=== PATIENT | female | born 1970 | race African-American/Black ===

== ENCOUNTER 2020-02-01 11:33 | Emergency (ER) | payer MEDICAID ==
[~2020-02-01] VITALS: Ht 160 cm; Wt 92.5 kg
[2020-02-01 11:40] VITALS: BP 159/97
--- NOTE | 2020-02-01 12:00 | NUR ---
ED Nurse Note: Patient from home and walked in due heart palpitation and feeling weak x 1 week. Reports dizziness when waking up in the morning. Patient presented calm, AAO x4, HR 103, other VSS at this time.
--- NOTE | 2020-02-01 12:01 | Emergency Room Report ---
History of Present Illness General Chief Complaint: Palpitations Source: Patient (Roc Estevez MD) Present Illness HPI Patient is a 49-year-old female who presents for intermittent palpitations. Reports having increased associated lightheadedness. Reports having interm ittent episodes of racing heartbeat. Denies any prior cardiac history. Does not seek medical care regularly. Denies any recent bleeding episodes or history of anemia. Had not been having vomiting or diarrhea. Denies any recent fever or shortness of breath. Speaks primarily [place] creole. (Roc Estevez MD) Allergies: Coded Allergies: No Known Allergies (Unverified , 02/01/20) COVID-19 Screening Contact w/high risk pt: No Experienced COVID-19 symptoms?: No COVID-19 Testing performed SURVEY RESEARCH ANALYST: No (Roc Estevez MD) Patient History Past Medical History: see triage record Reviewed Nursing Documentation: PMH: Agreed; PSxH: Agreed (Roc Estevez MD) Nursing Documentation-PMH Past Medical History: No Stated History (Roc Estevez MD) Review of Systems All Other Systems: negative except mentioned in HPI (Roc Estevez MD) Physical Exam Vital Signs Date Time Temp Pulse Resp B/P (MAP) Pulse Ox O2 Delivery O2 Flow Rate FiO2 02/01/20 11:39 98.8 97 19 159/97 (117) 96 Room Air Sp02 EP Interpretation: reviewed, normal General Appearance: normal inspection, well appearing, no apparent distress, alert, GCS 15 Head: atraumatic ENT: normal ENT inspection, hearing grossly normal, normal voice Neck: normal inspection, full range of motion, supple, no bony tend Respiratory: normal inspection, lungs clear, normal breath sounds, no res piratory distress, no retraction, no wheezing Cardiovascular #1: no edema, tachycardia Gastrointestinal: normal inspection, normal bowel sounds, non tender, soft, no guarding, no hernia Genitourinary: no CVA tenderness Musculoskeletal: normal inspection, back normal, normal range of motion Neurologic: alert, responsive, speech normal, normal inspection Psychiatric: normal inspection, judgement/insight normal, mood/affect normal (Roc Estevez MD) Medical Decision Making Diagnostic Impression: Primary Impression: Palpitations Additional Impression: Thyroid nodule ER Course Patient presented for palpitations. Differential diagnosis include was not limited to arrhythmia, hypothyroid, PVCs among others. Because of complexity of patient's case laboratory tests and imaging studies were ordered. Patient's laboratory testing did show some evidence of elevated D-dimer. CT imaging was ordered to evaluate for possible PE. Troponin was noted be negative. Patient does not have any known cardiac risk factor. Patient was observed to have some intermittent PVCs without evidence of cardiac arrhythmia. Patient was endorsed to Dr. Ribeiro. Pending CT findings. (Roc Estevez MD) ER Course Assumed care of the patient from the previous provider at approximately 1400. Please refer to initial note for full history and physical exam. Briefly, 49-year-old female no reported medical history presenting for palpitations and lightheadedness several days duration. At the time of signout we are pending CTA as the patient had a positive D-dimer. EKG showed nonspecific borderline tachycardia. Troponin was negative. TSH, CBC although was within normal limits. No large occluding thrombus identified on CT though they could not exclude small periphery PE due to timing contrast. There is a questionable thyroid nodule as well. Discussed these findings with patient and her son. She has been ambulatory in the emergency department with stable vital signs and no further symptoms. She would like to return home at this time and declined admission. Will refer to nearby clinics and encouraged her to follow- up with PMD through her insurance program. Copies of her labs and CTs including discharge paperwork. Instructed to return with new or worsening symptoms. Patient and son understand and agree with this treatment plan. Laboratory Tests Test 02/01/20 12:10 White Blood Count 8.1 K/UL (4.8-10.8) Red Blood Count 4.63 M/UL (4.20-5.40) Hemoglobin 13.0 G/DL (12.0-16.0) Hematocrit 40.7 % (37.0-47.0) Mean Corpuscular Volume 88 FL (80-99) Mean Corpuscular Hemoglobin 28.2 PG (27.0-31.0) Mean Corpuscular Hemoglobin Concent 32.1 G/DL (32.0-36.0) Red Cell Distribution Width 13.6 % (11.6-14.8) Platelet Count 260 K/UL (150-450) Mean Platelet Volume 8.4 FL (6.5-10.1) Neutrophils (%) (Auto) 66.0 % (45.0-75.0) Lymphocytes (%) (Auto) 27.7 % (20.0-45.0) Monocytes (%) (Auto) 5.1 % (1.0-10.0) Eosinophils (%) (Auto) 0.3 % (0.0-3.0) Basophils (%) (Auto) 0.9 % (0.0-2.0) Prothrombin Time 11.4 SEC (9.30-11.50) Prothrombin Time INR 1.0 (0.9-1.1) Activated Partial Thromboplast Time 22 SEC (23-33) L D-Dimer 0.64 mg/L FEU (0.00-0.49) H Urine Color Yellow Urine Appearance Clear Urine pH 5 (4.5-8.0) Urine Specific [place] 1.025 (1.005-1.035) Urine Protein 1+ (NEGATIVE) H Urine Glucose (UA) Negative (NEGATIVE) Urine Ketones Negative (NEGATIVE) Urine Blood 2+ (NEGATIVE) H Urine Nitrite Negative (NEGATIVE) Urine Bilirubin Negative (NEGATIVE) Urine Urobilinogen Normal MG/DL (0.0-1.0) Urine Leukocyte Esterase 2+ (NEGATIVE) H Urine RBC 2-4 /HPF (0 - 2) H Urine WBC 2-4 /HPF (0 - 2) Urine Squamous Epithelial Cells Few /LPF (NONE/OCC) Urine Bacteria Few /HPF (NONE) Urine Mucus Few /LPF (NONE/OCC) H Sodium Level 137 MMOL/L (136-145) Potassium Level 3.7 MMOL/L (3.5-5.1) Chloride Level 101 MMOL/L (98-107) Carbon Dioxide Level 25 MMOL/L (21-32) Blood Urea Nitrogen 8 mg/dL (7-18) Creatinine 1.1 MG/DL (0.55-1.30) Estimated Glomerular Filtration Rate > 60 mL/min (>60) Glucose Level 117 MG/DL (74-106) H Calcium Level 9.2 MG/DL (8.5-10.1) Total Bilirubin 0.5 MG/DL (0.2-1.0) Aspartate Amino Transferase (AST) 24 U/L (15-37) Alanine Aminotransferase (ALT) 20 U/L (12-78) Alkaline Phosphatase 75 U/L (46-116) Troponin I 0.000 ng/mL (0.000-0.056) C-Reactive Protein, Quantitative 1.2 mg/dL (0.00-0.90) H Pro-B-Type Natriuretic Peptide 102 pg/mL (0-125) Total Protein 8.0 G/DL (6.4-8.2) Albumin 3.9 G/DL (3.4-5.0) Globulin 4.1 g/dL Albumin/Globulin Ratio 1.0 (1.0-2.7) Thyroid Stimulating Hormone (TSH) 1.267 uiU/mL (0.358-3.740) Urine Opiates Screen Negative (NEGATIVE) Urine Barbiturates Screen Negative (NEGATIVE) Phencyclidine (PCP) Screen Negative (NEGATIVE) Urine Amphetamines Screen Negative (NEGATIVE) Urine Benzodiazepines Screen Negative (NEGATIVE) Urine Cocaine Screen Negative (NEGATIVE) Urine Marijuana (THC) Screen Negative (NEGATIVE) (Cyrus Ribeiro MD) EKG Diagnostic Results Troponin ordered: Yes When was troponin ordered?: Feb 01, 2020 EKG Time: 12:22 Rate: tachycardiac Rhythm: NSR ST Segments: no acute changes Other Impression Sinus rhythm, normal axis, normal intervals, nonspecific T wave changes. No ST segment changes (Cyrus Ribeiro MD) Rhythm Strip Diag. Results Rhythm Strip Time: 12:22 EP Interpretation: yes Rate: 99 Rhythm: NSR, no PVC's, no ectopy (Cyrus Ribeiro MD) Chest X-Ray Diagnostic Results Chest X-Ray Diagnostic Results : Chest X-Ray Ordered: Yes # of Views/Limited/Complete: 1 View Indication: Chest Pain Interpretation: no consolidation, no effusion, no pneumothorax, no acute cardiopulmonary disease Impression: No acute disease Electronically Signed by: Electronically signed by Dr. Cyrus Ribeiro MD (Cyrus Ribeiro MD) Last Vital Signs Date Time Temp Pulse Resp B/P (MAP) Pulse Ox O2 Delivery O2 Flow Rate FiO2 02/01/20 11:40 98.8 97 19 159/97 96 Room Air Status: improved (Roc Estevez MD) Disposition: HOME, SELF-CARE Condition: Stable Roc Estevez MD Feb 01, 2020 12:01 Cyrus Ribeiro MD Feb 01, 2020 16:10
--- NOTE | 2020-02-01 12:23 | NUR ---
ED Nurse Note: IV line was established on right AC 20ga, blood collected sent to lab
[2020-02-01 12:48] LABS: BASOPHILS % (AUTO) 0.9 % (0.0-2.0); EOSINOPHILS % (AUTO) 0.3 % (0.0-3.0); HEMATOCRIT 40.7 % (37.0-47.0); LYMPHOCYTES % (AUTO) 27.7 % (20.0-45.0); MEAN CORPUSCULAR VOLUME 88 FL (80-99); MONOCYTES % (AUTO) 5.1 % (1.0-10.0); PLATELET COUNT 260 K/UL (150-450); RED BLOOD COUNT 4.63 M/UL (4.20-5.40); RED CELL DISTRIBUTION WIDTH 13.6 % (11.6-14.8); WHITE BLOOD COUNT 8.1 K/UL (4.8-10.8)
[2020-02-01 12:54] LABS: APPEARANCE,URINE CLEAR; BILIRUBIN, URINE NEGATIVE (NEGATIVE); GLUCOSE, URINE (UA) NEGATIVE (NEGATIVE); KETONES,URINE NEGATIVE (NEGATIVE); LEUKOCYTE ESTERASE ,URINE 2+ (NEGATIVE); NITRITE,URINE NEGATIVE (NEGATIVE); PH,URINE 5 (4.5-8.0); PROTEIN,URINE 1+ (NEGATIVE); UROBILINOGEN,URINE NORMAL MG/DL (0.0-1.0)
[2020-02-01 12:56] LABS: COLOR,URINE YELLOW
[2020-02-01 13:19] LABS: ALANINE AMINOTRANSFERASE 20 U/L (12-78); ALBUMIN 3.9 G/DL (3.4-5.0); ALKALINE PHOSPHATASE 75 U/L (46-116); ASPARTATE AMINO TRANSFERASE 24 U/L (15-37); BILIRUBIN,TOTAL 0.5 MG/DL (0.2-1.0); BLOOD UREA NITROGEN 8 mg/dL (7-18); CALCIUM 9.2 MG/DL (8.5-10.1); CARBON DIOXIDE 25 MMOL/L (21-32); CHLORIDE 101 MMOL/L (98-107); CREATININE 1.1 MG/DL (0.55-1.30); POTASSIUM 3.7 MMOL/L (3.5-5.1); SODIUM 137 MMOL/L (136-145)
[2020-02-01] MEDS ORDERED: Omnipaque 350 100ml vial INJ PRN (14:15)
--- NOTE | 2020-02-01 14:20 | NUR ---
ED Nurse Note: Patient was able to ambulate to the bathroom with steady gait
--- NOTE | 2020-02-01 14:58 | Diagnostic Imaging Report ---
Indication: Chest pain Technique: One view of the chest Comparison: none Findings: Lungs and pleural spaces are clear. Heart size is normal. Impression: No acute process
--- NOTE | 2020-02-01 16:00 | Diagnostic Imaging Report ---
ndication: Chest pain, palpitations Technique: IV administration nonionic contrast. Spiral acquisitions obtained from the lung bases to the lung apices. Multiplanar and 3-D reconstructions were generated. Total dose length product 310 mGycm. CTDIvol(s) 5, 26, 9 mGy. Dose reduction achieved using automated exposure control Comparison: none Findings: Exam is limited, due to suboptimal opacification of the pulmonary arteries as well as respiratory motion artifact. No gross large central pulmonary emboli demonstrated; smaller peripheral emboli cannot be excluded with any confidence. No pulmonary arterial dilatation. No right ventricular dilatation. No evidence of thoracic aortic aneurysm or dissection. The lungs are clear. No infiltrates, effusions, nodules, masses, or congestion demonstrated. There is questionably a subcentimeter nodule in the right thyroid lobe. The heart size is normal. No pericardial effusion. No mediastinal or hilar mass or adenopathy. No axillary or chest wall mass or adenopathy. Included upper abdominal anatomy is unremarkable. Impression: Limited exam, due to suboptimal pulmonary arterial opacification, respiratory motion artifact, precluding exclusion of small peripheral and blood. No gross large vessel central pulmonary emboli demonstrated. No definite acute abnormality demonstrated The CT scanner at [facility] is accredited by the [employer] and the scans are performed using protocols designed to limit radiation exposure to as low as reasonably achievable to attain images of sufficient resolution adequate for diagnostic evaluation.
[2020-02-01 16:19] VITALS: BP 159/97
--- NOTE | 2020-02-01 16:19 | NUR ---
ER DISCHARGE NOTE: Patient is cleared to be discharged per ERMD, pt is aox4, on room air, with stable vital signs. pt was given dc and prescription instructions, pt was able to verbalize understanding, pt id band and iv site removed without complications. pt is able to ambulate with steady gait. pt took all belongings.
--- NOTE | 2020-02-04 14:58 | Cardiology Report ---
APPROVED REPORT EKG Measurement Heart [id number] <Conclusion> Normal sinus rhythm Nonspecific T wave abnormality Abnormal ECG
== END 2020-02-01 16:20 | disposition home or self-care (01) ==
LOC: EMR 12:05
DX: R00.2 Palpitations (principal); E04.1 Nontoxic single thyroid nodule
CPT/HCPCS: 36415; 71045; 71275; 80053; 80307; 81003; 83880; 84443; 84484; 85025; 85379; 85610; 85730; 86140; 86850; 86900; 86901; 93005; 96360; J7030; Q9967; Z7502; 99284